=== PATIENT | female | born 1960 | race Caucasian/White ===

== ENCOUNTER 2024-09-29 18:52 | Inpatient (IN) | payer BC ==
[2024-09-29] VITALS (10 sets, daily range): BP systolic 143–176; BP diastolic 71–94
[~2024-09-29] VITALS: Ht 160 cm; Wt 82.0 kg
[~2024-09-29 18:52] MED LIST: ADVAIR DISK1 INH; AUGMENTIN875TAB PO; CEFUROXIME500 MG PO; COMPRESSOR; MUCINEX600 MG PO; OXY1; PREDNISONE10 MG PO; SPIRIVA HANDIHALER IN; VENTOLIN HFA IN; ZITHROMAX250 MG PO
--- NOTE | 2024-09-29 18:59 | NUR ---
INCOMING EDP NOTIFIED OF PATIENT ARRIVAL AND TRIAGE.
--- NOTE | 2024-09-29 19:05 | NUR ---
EDP AT BEDSIDE. STROKE ALERT CALLED AT THIS TIME.
[2024-09-29] MEDS ORDERED: MECLIZINE HCL 25 MG/TAB PO ONE (19:20)
[2024-09-29] MEDS ORDERED: PROMETHAZINE HCL 25 MG/ML AMP IV ONE (19:20)
[2024-09-29] MEDS ORDERED: SODIUM CHLORIDE 0.9% 1,000 ML IV ONE (19:20)
[2024-09-29 19:25] LABS: BASO% 0.3 % (0-3); HEMATOCRIT 43.3 % (37.0-47.0); HEMOGLOBIN 14.4 g/dl (12.0-16.0); IMMATURE GRANULOCYTES 0.9 % (0.0-5.0); LYMPH% 11.6 % (15-41); MEAN CELL VOLUME 91.5 fL CALC (80.0-100.0); MEAN CORPUSCULAR HGB 30.4 pG CALC (26.0-32.0); MEAN CORPUSCULAR HGB CONC 33.3 g/dL CAL (32.0-36.0); NEUT# 6.23 thou/uL (2.00-7.15); NEUT% 82.2 % (42-76); RED BLOOD COUNT 4.73 mill/uL (4.20-5.60); RED CELL DISTRI WIDTH 12.3 % (11.5-15.5)
[2024-09-29 19:38] LABS: ANION GAP 10 (6-22 (CALC)); BUN 20 mg/dL (8-23); BUN/CREATININE RATIO 29 (12-20 (CALC)); CALCULATED LDLCHOLESTEROL 84 mg/dL (62-129 (CALC)); CARBON DIOXIDE 24 mmol/l (22-30); CHLORIDE 105 mmol/l (95-108); CHOLESTEROL HDL RATIO 2.2 (<4.4 (CALC)); CREATININE 0.7 mg/dL (0.5-1.0); ESTIMATED GFR 97 ML/MIN (>=90 (CALC)); HDL CHOLESTEROL 82 mg/dL (39.0-59.0); POTASSIUM 4.3 mmol/l (3.5-5.1); SODIUM 136 mmol/l (137-146); TOTAL CHOLESTEROL 177 mg/dl (0-199); TOTAL TRIGLYCERIDES 57 mg/dl (0-149); VLDL CHOLESTROL 11 mg/dl (1-41 (CALC))
[2024-09-29 19:39] LABS: ALBUMIN 3.7 g/dL (3.2-5.0); ALKALINE PHOSPHATASE 53 u/l (38-126); BILIRUBIN, TOTAL 0.6 mg/dL (0.02-1.3); SGOT/AST 30 u/l (9-36); TOTAL PROTEIN 6.5 g/dL (6.3-8.2)
[2024-09-29] MEDS ORDERED: LABETALOL HCL 20 MG/ 4 ML CARTRG IV ONE (19:40)
[2024-09-29] MEDS ORDERED: ASPIRIN 81 MG/TAB PO ONE (19:45)
[2024-09-29 19:49] LABS: PROTHROMBIN TIME 10.4 SECONDS (9.0-12.5)
[2024-09-29] MEDS ORDERED: hydrALAZINE HCL 20 MG/ML VIAL(1 ML) IV PRN (21:05)
[2024-09-29] MEDS ORDERED: MAGNESIUM HYDROXIDE 30 ML UDC PO PRN (21:05)
[2024-09-29] MEDS ORDERED: ACETAMINOPHEN 325 MG/TAB PO PRN (21:05)
[2024-09-29] MEDS ORDERED: Zaleplon 5 MG/CAP PO PRN (21:05)
[2024-09-29] MEDS ORDERED: amLODIPine BESYLATE 5 MG/TAB PO SCH (21:05)
[2024-09-29] MEDS ORDERED: LISINOPRIL10 MG PO (21:13)
[2024-09-29] MEDS ORDERED: LIPITOR20 M1 PO (21:14)
[2024-09-29] MEDS ORDERED: WIXELA INHUB 251 AER IN (21:21)
[2024-09-29] MEDS ORDERED: SPIRIVA RE2.5 MCG/AC IN (21:23)
--- NOTE | 2024-09-29 22:00 | NUR ---
PT AMB TO BR WITH STEADY GAIT, AWAITING URINE SPECIMEN.
--- NOTE | 2024-09-29 22:11 | NUR ---
ATTEMPTED TO CALL REPORT, VOICES NURSE WILL CALL BACK.
[2024-09-29 22:24] LABS: URINE BILIRUBIN - DIPSTICK Negative (NEGATIVE); URINE BLOOD DIPSTICK Negative (NEGATIVE); URINE COLOR Yellow; URINE GLUCOSE - DIPSTICK Negative (NEGATIVE); URINE KETONE Trace mg/dL (NEGATIVE); URINE LEUK ESTERASE Negative (NEGATIVE); URINE NITRITE - DIPSTICK Negative (Negative); URINE PROTEIN - DIPSTICK Negative (NEG-TRACE); URINE SPECIFIC GRAVITY <=1.005; URINE UROBILINOGEN - DIPSTICK 0.2 E.U./dL (0.2)
--- NOTE | 2024-09-29 23:05 | NUR ---
AATTEMPTED TO CALL [facility] WITH NO ANSWER.
--- NOTE | 2024-09-29 23:37 | NUR ---
NURSING CONCRETE WORKER VOICES WILL SPEAK TO [facility] STAFF TO CALL B[employer] OPERATOR FFOR REPORT
--- NOTE | 2024-09-29 23:58 | NUR ---
REPORT CALLED TO TAYLOR PARKER.
[2024-09-30] VITALS (47 sets, daily range): BP systolic 116–177; BP diastolic 60–100
--- NOTE | 2024-09-30 00:10 | NUR ---
NEW ADMIT R/O STROKE ARRIVED TO THE UNIT BY STRETCHER. PATIENT A/OX4, NO C/O PAIN, NO S/S RESPIRATORY DISTRESS O2 SATS WNL. PATIENT C/O DIZZINESS WHEN AMBULATING FROM STRETCHER TO BED. PATIENT SKIN INTACT. PATIENT POSITIVE BOWEL SOUNDS LAST BOWEL MOVEMENT 09/28/24. PATIENT SCORE ONE ON NIHSS FACIAL ASYMMETRY PATIENT HX FACIAL SX 1970. PATIENT ORIENT TO ROOM, STAFF, PLAN OF CARE AND CALL LIGHT SYSTEM.
--- NOTE | 2024-09-30 00:10 | NUR ---
09/29/241904- MISSION ASSESSMENT SPECIALIST CALLED TO PT BEDSIDE DUE TO STROKE ALERT INITIATED, MISSION ASSESSMENT SPECIALIST TO CT WITH PT PER STROKE PROTOCOL. PT C/O N/V/DIZZINESS/HEAD PRESSURE, PT VOICES "ROOM SPINNING." 09/29/241909 PT CT OF BRAIN W/O CONTRAST TKN AT THIS TIME. 09/29/241914 CONNECTED TO TELENUEROLOGIST AT THIS TIME, LKW PLACED AT 0000 FOR PT BEDTIME, PT VOICES AWOKE AT 0700 THIS MORNING FROM BEDTIME LAST NIGHT WITH SEVERE DIZZINESS, HEAD PRESSURE, AND N/V. PT ASSESSED WITH NIHSS AT THIS TIME, PT NOTED WITH MILD (L) SIDED FACIAL DROOP, PT VOICES HX OF PLASTIC SX TO (L) SIDE AFTER DOG BITE, NO ADDITIONAL DEFECITS NOTED, PT CONTINUES WITH SEVERE N/V/DIZZINESS AT THIS TIME, PT BG AT 88, 2ND IV PLACED, LABS COLLECTED. TELENUEROLOGIST VOICES NO THROMBOLYTICS AND TO CONTINUE WITH CVA PROTOCOL FOR CTAs. 09/29/241926 PT MEDICATED PER ORDERS FOR N/V, PT IN PROCESS OF CTA AT THIS TIME. 09/29/241935 PT RETURNED TO ED RM #8 AT THIS TIME, PT UPDATED ON PLAN OF CARE, REMAINS CONNECTED TO CONTINUOUS MONITOR. 09/29/241944 EKG TKN, PT ASKED FOR URINE SPECIMEN, DENIES AT THIS TIME, PT VOICES MODERATE RELIEF OF N/V, PT REMAINS WITHOUT ADDITIONAL DEFECITS, (L) SIDED FACIAL DROOP REMAINS. 09/29/242014 DYSPHAGIA SCREENING CMP, MEDICATED PER ORDERS. NAD NOTED, PT UPDATED ON CONTINUOUS PLAN OF CARE, DENIES NEED FOR URINATION AT THIS TIME. 09/29/242134 PT STATUS REMAINS STATES, PT VOICES MODERATE RELIEF OF N/V/DIZZINESS AT THIS TIME. 09/29/242199 PT ARRIVES AT BEDSIDE, PT QUESTIONED ON PT (L) SIDED DEFECIT BASELINE, PT VOICES "I AM UNSURE, IT MAY BE A LITTLE DIFFERENT." MISSION ASSESSMENT SPECIALIST WILL CONTINUE TO JUSTIN ON MEND DUE TO UNCERTAINTY OF BASELINE. 09/29/242209 PT AMB TO BR WITH ASSISTANCE DUE TO INCREASE IN DIZZINESS WITH AMBULATION AND EYES OPEN, PT CONTINUES TO VOICE THE ROOM SPINNING. URINE COLLECTED, PT UPDATED ON CONTINUOUS PLAN OF CARE. 09/29/242299 MISSION ASSESSMENT SPECIALIST ATTEMPTED TO CALL REPORT MILT[place]LE TIMES, WILL AWAIT ANSWER FOR TRANSPORT OF PT TO [facility] AT THIS TIME, PT VSS, NAD NOTED, PT VOICES UNDERSTANDING OF CONTINUED PLAN OF CARE. 09/30/24 0010 PT TRANSPORTED TO [facility] VIA STRETCHER, NAD NOTED, PT CONTINUES WITH STATED DEFECITS. NURSE/ZIGZAG ELASTIC ATTACHER AT BEDSIDE, PT VOICES APPRECIATION OF CARE.
[2024-09-30] MEDS ORDERED: ONDANSETRON HCl 4 MG/2 ML SDV IV PRN ×2 (01:20→14:35)
[2024-09-30 05:04] LABS: BASO% 0.4 % (0-3); EOS% 0.7 % (0-8); HEMATOCRIT 41.7 % (37.0-47.0); HEMOGLOBIN 13.4 g/dl (12.0-16.0); MEAN CELL VOLUME 92.7 fL CALC (80.0-100.0); MEAN CORPUSCULAR HGB 29.8 pG CALC (26.0-32.0); MEAN CORPUSCULAR HGB CONC 32.1 g/dL CAL (32.0-36.0); NEUT# 5.11 thou/uL (2.00-7.15); NEUT% 71.9 % (42-76); RED BLOOD COUNT 4.5 mill/uL (4.20-5.60); RED CELL DISTRI WIDTH 12.8 % (11.5-15.5)
[2024-09-30 05:23] LABS: ALBUMIN 3.1 g/dL (3.2-5.0); BILIRUBIN, TOTAL 0.4 mg/dL (0.02-1.3); CREATININE 0.7 mg/dL (0.5-1.0); POTASSIUM 4.1 mmol/l (3.5-5.1); TOTAL PROTEIN 5.7 g/dL (6.3-8.2)
--- NOTE | 2024-09-30 05:30 | NUR ---
PATIENT A/OX4, NO S/S RESPIRATORY DISTRESS PATIENT ON ROOM AIR, PATIENT C/O HEADACHE TREATED PATIENT PAIN PER ORDERS. PATIENT HEART RHYTHM NORMAL SINUS WITH AN HEART RATE OF 76 ON TELE AND PRN BP IV MED EFFECTIVE BP DECREASE 129/60. PATIENT C/O DIZZINESS WHEN AMBULATING TO RESTROOM. PATIENT VOIDED CLEAR YELLOW URINE. PATIENT GIVEN BEDSIDE COMMODE, BED ALARM ON AND FUNCTIONING AND CALL LIGHT WITHIN REACH.
--- NOTE | 2024-09-30 07:20 | NUR ---
REPORT RECEIVE FROM BANDARRN
--- NOTE | 2024-09-30 08:31 | NUR ---
AT BEDSIDE DISCUSSING POC WITH PT
[2024-09-30] MEDS ORDERED: PROMETHAZINE HCL 25 MG/TAB PO PRN (08:45)
[2024-09-30] MEDS ORDERED: MECLIZINE HCL 25 MG/TAB PO SCH (09:00)
[2024-09-30] MEDS ORDERED: ASPIRIN EC 81 MG/TAB PO SCH (09:00)
--- NOTE | 2024-09-30 09:40 | NUR ---
PT OOB RESTING IN RECLINER WITH SPOUSE AT BEDSIDE,A&O X3;PT DENIES ANY CURRENT PAIN BUT DOES REPORT NAUSEA-PT MEDICATED WITH PRN PHENERGAN 25MG PO;ASSESSMENT COMPLETED;RESPIRATIONS EVEN AND UNLABORED ON RA,CLEAR LUNG SOUNDS;ABDOMEN SOFT ON PALPATION AND ACTIVE IN ALL 4 QUADRANTS;STRONG PEDAL PULSES;SKIN INTACT;EMS #18G TO LAC AND #18G TO RAC FLUSHED AND PATENT, BOTH SITES APPEAR HEALTHY;TELE MONITORING IN PLACE READING SR;PT DENIES ANY ADDITIONAL NEEDS AND IS ENCOURAGED TO CALL FOR ASSISTANCE IF NEEDED;CALL LIGHT IN REACH;FREQUENT ROUNDS MADE.
--- NOTE | 2024-09-30 11:10 | NUR ---
Patient seen for neuro rounding. Patient NIHSS 0. Patient has negative HINTS exam. Patient has no abnormal test of skew or bi-directional nystagmus. Did not complete head impulse test as patient has reported nausea and dizziness upon any movement. Patient describes dizziness as she is spinning. Patient sitting in bedside side chair and when asked to stand has trunkal ataxia and has to sit down immediately.
[2024-09-30] MEDS ORDERED: DEXTROSE 250 ML IV PRN (11:40)
[2024-09-30] MEDS ORDERED: IPRATROPIUM-Albuterol 0.5MG-2.5MG/3 ML NEB PRN (11:45)
[2024-09-30] MEDS ORDERED: SODIUM CHLORIDE 0.9% 1,000 ML IV PRN (11:45)
--- NOTE | 2024-09-30 12:05 | NUR ---
PT OOB RESTING IN RECLINER;RESPIRATIONS EVEN AND UNLABORED ON RA;PT REPORTS HEADACHE AND IS MEDICATED WITH PRN TYLENOL 605MG PO;TELE MONITORING IN PLACE;IV SITE X2 PATENT;PT DENIES ANY ADDITIONAL NEEDS AND IS ENCOURAGED TO CALL FOR ASSISTANCE IF NEEDED;CALL LIGHT IN REACH;FREQUENT ROUNDS MADE.
--- NOTE | 2024-09-30 12:16 | NUR ---
REPORT GIVEN TO TAYLOR VERDUZCO. CARE RELINQUISHED AT THIS TIME.
[2024-09-30] MEDS ORDERED: TIOTROPIUM BROMIDE MONOHYDRATE 2.5 MCG/ACT 4 GM INH IN SCH (13:00)
[2024-09-30] MEDS ORDERED: ONDANSETRON 4 MG/TAB ODT PO PRN (14:30)
--- NOTE | 2024-09-30 15:04 | NUR ---
patient arrived to icu from ms, report given from jacob at bedside; room air; denied any n/d/v at this time; patient states she does have a headache; Al RN in room with patient completing assessment; tele leads was applied to patinet; call light within reach; bed in lowest postion; iv site clean and intact saline locked at this time; transfer orders faxed to registration; safety measures in place
--- NOTE | 2024-09-30 15:05 | NUR ---
Patient arrived on unit. Patient respirations even and unlabored denies any pain at this time. Patient still has dizziness described as she is spinning. Patient states nausea decreased at this time. NIHSS 0. Patient denies any headache at this time. HR 77 normal sinus rhythm. Respirations are at 19 at 99% on room air. Patient still has trunkal ataxia when standing.
--- NOTE | 2024-09-30 16:31 | NUR ---
WAQAR IN BED, COMPLAINT OF HEADACHE; DENIED ANY PAIN MEDICATION, OFFERED ICE PACK TO USE AT THE TIME; DENIED NEEDING ANYTHING ELSE AT THIS TIME; IVSITE CLEAN AND INTACT SALINE LOCKED; AT BEDSIDE; SHELBY VAZQUEZ UPDATED ON STATUS OF PATIENT; CALL LIGHT WITHIN REACH;BED IN LOWEST POSTION;SAFETY MEASURES IN PLACE
--- NOTE | 2024-09-30 18:20 | NUR ---
WRITTER ASSITED PATIENT TO BATHROOM, JOHN DID COMPLAINTOF SOME DIZZINESS BUT THAT SHE WAS OKAY WAQAR IS CURRENTLY SITTING ON SIDE OF BED EATING DINNER WITH ; NO COMPLAINTS; TELE LEADS ALL BACK ATTACHED AND WORKING; CALL LIGHT WTHIN REACH; BED IN LOWEST POSTION SAFTEY MEASURES IN PLACE
--- NOTE | 2024-09-30 19:39 | NUR ---
ASSESSMENT COMPLETED. NIH AND MEND COMPLETED, L ARM HAD A VERY SMALL DRIFT. NO FACIAL DROOP, SPEECH IS CLEAR. PT STATES SHE IS DIZZY UPON STANDING, COMPLAINS OF 7/10 HEADACHE AND NAUSEA. PT REQUSTED TYLENOL AND ICEPACK FOR HEADACHE. TYLENOL AND ZOFRAN GIVEN PER ORDERS. LIGHTS ARE DIM, COMFORT MEASURES PROVIDED. HR IS NS 74, BP ELEVATED 161/81 MAP 107. CALL LIGHT IS IN REACH
[2024-09-30] MEDS ORDERED: ATORVASTATIN CALCIUM 40 MG/TAB PO SCH (21:00)
[2024-09-30] MEDS ORDERED: ENOXAPARIN SODIUM 40 MG/0.4 ML SYR SC SCH (21:00)
--- NOTE | 2024-09-30 22:02 | NUR ---
PT RESTING, NO CHANGES NOTED. PT STATES HEADACHE AND NAUSEA IS MUCH BETTER.
[2024-10-01] VITALS (85 sets, daily range): BP systolic 107–204; BP diastolic 51–129
--- NOTE | 2024-10-01 | NUR ---
NO CHANGE IN PT STATUS. V/S STABLE. CALL LIGHT IN REACH
--- NOTE | 2024-10-01 02:58 | NUR ---
PT RESTING COMFORTABLY, NO CHANGES NOTED. PT HAS NO COMPAINTS/NEEDS AT THIS TIME. V/S STABLE. CALL LIGHT IN REACH
[2024-10-01 05:50] LABS: BASO% 0.8 % (0-3); EOS% 2.3 % (0-8); HEMATOCRIT 42.9 % (37.0-47.0); HEMOGLOBIN 13.7 g/dl (12.0-16.0); LYMPH% 30.8 % (15-41); MEAN CELL VOLUME 95.8 fL CALC (80.0-100.0); MEAN CORPUSCULAR HGB 30.6 pG CALC (26.0-32.0); MEAN CORPUSCULAR HGB CONC 31.9 g/dL CAL (32.0-36.0); MONO% 9.8 % (2-13); NEUT% 56.3 % (42-76); RED BLOOD COUNT 4.48 mill/uL (4.20-5.60)
--- NOTE | 2024-10-01 05:53 | NUR ---
NO CHANGES NOTED. PT STATES SHE FELLS A LITTLE DIZZY BUT IS RESTING COMFORTABLY. V/S STABLE. CALL LIGHT IN REACH
[2024-10-01 05:57] LABS: ALBUMIN 3.1 g/dL (3.2-5.0); BILIRUBIN, TOTAL 0.5 mg/dL (0.02-1.3); CREATININE 0.8 mg/dL (0.5-1.0); POTASSIUM 3.9 mmol/l (3.5-5.1); TOTAL PROTEIN 5.7 g/dL (6.3-8.2)
--- NOTE | 2024-10-01 07:18 | NUR ---
PT REPORT RECEIVED FROM SERVICE OBSERVER CHIEF NO COMPLAINTS FROM PT AT THIS TIME, EASILY AROUSABLE, NIH A 0, WILL CONTINUE TO MONITER.
--- NOTE | 2024-10-01 09:47 | NUR ---
Treatment held this am per nursing, will attempt again in pm
--- NOTE | 2024-10-01 12:21 | NUR ---
PT UP SLOWLY WALKING AROUND ROOM TO BATHROOM, BECAME SLIGHTLY DIZZIER, BUT NO NAUSEA AT THIS TIME. WILL CONTINUE TO MONITER
--- NOTE | 2024-10-01 14:07 | NUR ---
Pt at CT, will see in am.
--- NOTE | 2024-10-01 15:29 | NUR ---
REMAINS AT BEDSIDE, PT STATES HEADACHE STILL REMAINS BUT DIZZYNESS IS SLIGHTLY BETTER, SPOKE TO HER ABOUT HER PLAN OF CARE, SHE IS EATING AND DRINKING A LITTLE OF WHAT BROUGHT IN FOR HER.
--- NOTE | 2024-10-01 19:15 | NUR ---
RECD REPORT VIA DAYSHIFT RN.PT DENIES CHEST PAIN, SOB OR DIZZINESS AT THIS TIME. PERFORMED NIH/MENDS PER PROTOCOL, NO CHANGE FROM PREVIOUS ASSESSMENT - NEURO ASSMT REMAINS NEGATIVE (ZERO). C/O MILD NICHOLE, NOT NEW AND NOT A CHANGE FROM ADMISSION. OFFERED TYENOL PER PT NOV - PT REQUESTED TO TAKE WITH 2100 MEDS. EDUCATED ON MEDCIATIONS AND PLAN PREPARING FOR POTENTIAL DC TOMORROW AFTER SCHEDULED ECHO. PT HAS NO SIGNS OF DISTRESS AT THIS TIME. FALL PRECAUTIONS IN PLACE. DEMONSTRATED USE OF CALL LIGHT
--- NOTE | 2024-10-01 22:00 | NUR ---
PT IS RESTING COMFORTABLY AFTER MEDICATED FOR NICHOLE AND SLEEP PER PT REQUEST. SONATA AND TYLENOL PROVIDED. ASSISTED TO BATHROOM VIA WALKER. DENIES ANY OTHER COMPLAINTS AT THIS TIME. NO SIGN OF DISTRESS NOTED. FALL PRECAUTIONS IN PLACE. CALL LIGHT WITHIN REACH
[2024-10-02] VITALS (29 sets, daily range): BP systolic 111–160; BP diastolic 60–106
--- NOTE | 2024-10-02 | NUR ---
SLEEPING COMFORTABLY. NO COMPLAINTS. NIH REMAINS CONSISTENT, NO CHANGES. CALL LIGHT IN REACH.
--- NOTE | 2024-10-02 03:10 | NUR ---
NIH REMAINS CONSISTENT. NO NEUROLOGICAL CHANGES NOTED. RESTING CALMLY WITH CALL LIGHT IN REACH. FALL PRECAUTIONS IN PLACE.
--- NOTE | 2024-10-02 05:03 | NUR ---
NIH REMAINS ZERO. NO CHANGES OVERNIGHT. PT REMAINS STABLE WITH NO COMPLAINTS OR SIGNS OF DISTRESS. VSS. RESTING COMFORTABLY WITH CALL LIGHT WTIHIN REACH
[2024-10-02 05:48] LABS: HEMOGLOBIN 14.5 g/dl (12.0-16.0); MEAN CELL VOLUME 93.8 fL CALC (80.0-100.0); MEAN CORPUSCULAR HGB 30.2 pG CALC (26.0-32.0); MEAN CORPUSCULAR HGB CONC 32.2 g/dL CAL (32.0-36.0); RED BLOOD COUNT 4.8 mill/uL (4.20-5.60); RED CELL DISTRI WIDTH 12.9 % (11.5-15.5)
[2024-10-02 06:04] LABS: ALBUMIN 3.1 g/dL (3.2-5.0); BILIRUBIN, TOTAL 0.6 mg/dL (0.02-1.3); CREATININE 0.7 mg/dL (0.5-1.0); POTASSIUM 3.9 mmol/l (3.5-5.1); TOTAL PROTEIN 5.8 g/dL (6.3-8.2)
--- NOTE | 2024-10-02 06:51 | NUR ---
PT REPORT RECEIVED FROM IT SENIOR ANALYST. PT REMAINS ALERT/ORIENTED X3, NO COMPLAINTS AT THIS TIME. NIH A 0 VITAL SIGNS STABLE, WILL CONTINUE TO MONITER
--- NOTE | 2024-10-02 08:53 | NUR ---
pt up walking with walker
[2024-10-02] MEDS ORDERED: CLOPIDOGREL BISULFATE 75 MG/TAB TAB PO SCH (09:00)
[2024-10-02] MEDS ORDERED: LISINOPRIL 10 MG/TAB PO SCH (09:00)
--- NOTE | 2024-10-02 09:08 | NUR ---
PT WALKING WITH PT.
--- NOTE | 2024-10-02 10:22 | NUR ---
ULTRASOUND HERE FOR ECHO. PT DENIES ANY COMPLAINTS
[2024-10-02] MEDS ORDERED: PLAVIX75 MG PO (13:23)
[2024-10-02] MEDS ORDERED: ADLT ASA LOW81 MG PO (13:24)
--- NOTE | 2024-10-02 14:09 | NUR ---
PT IV D/C'D, AND DISCHARGE INSTRUCTIONS GIVEN , PT VOICED UNDERSTANDING, PT DISCHARGED WITH STROKE PACKET AND W/C TO CAR.
--- NOTE | 2024-10-03 11:51 | NUR ---
Discharge follow up call completed 10/03/24. Patient states she is doing well and had no issues since discharge. Patient has prescribed mediccation and is taking in addition to her regular medication. Patient has already made a follow up appointment with her PCP. No needs or concerns ad alized at this time.
== END 2024-10-02 14:15 | disposition home or self-care (01) | DRG 66 ==
LOC: ED 18:52 → ED-I 20:36 → ED 20:36 → MS2 21:02 → ED 21:02 → ICU 09-30 15:01
PROVIDERS: Nurse Practitioner; Nurse Practitioner Family; ADMIT Internal Medicine; ATTEND Internal Medicine
DX: I63.441 Cerebral infarction due to embolism of right cerebellar artery (principal); R29.810 Facial weakness; R42 Dizziness and giddiness; R51.9 Headache, unspecified; R11.2 Nausea with vomiting, unspecified; R29.701 NIHSS score 1; I10 Essential (primary) hypertension; J44.9 Chronic obstructive pulmonary disease, unspecified; E78.5 Hyperlipidemia, unspecified; Z87.891 Personal history of nicotine dependence; Z82.49 Family history of ischemic heart disease and other diseases of the circulatory system
CPT/HCPCS: J0360; J1650; J2405; J2550; Q9967